=== PATIENT | female | born 1925 | race Caucasian/White ===

== ENCOUNTER → 2017-05-23 | Outpatient (CLI) | payer MEDICARE, OTHER ==
[2016-01-16 09:39] VITALS: BMI 27.6
[~2017-05-23] MED LIST: ACE3 PO; ACE500 PO; ALEN70TA42 PO; AML5 PO; AMLO-104 PO; AMLO-546 PO; AMLO-98 PO; ASPI-1441 PO; ASPI-715 PO; ATOR10TA65 PO; BILB80CA2 PO; C-PAP; CALC500T42 PO; CELE-1 PO; CEP500 PO; CEPH250C37 PO; CEPH500T7 PO; CETI-434 PO; CHOL400C10 PO; CIPR-214 PO; DAR100 PO; DOC100 PO; DOCU100C49 PO; ERG400 PO; EXE25PT PO; FAMO20TA28 PO; GAB300 PO; GABA-549 PO; GLIM4TAB49 PO; HCTZ25 PO; HYDR-385 PO; LETPT GT; LETR2.5T4 PO; LIDO20SO MM; LOR7.5/325 PO; LUTE10TA3 PO; MET500 PO; METF-1 PO; METF-410 PO; METF-415 PO; MOM PO; MULT-1 PO; NIT4 SL; NITR-57 PO; OMEP-137 PO; OMEP-153 PO; OMEP40CA45 PO; ONDA4TAB PO; OSC600 PO; PHEN200T32 PO; PRAV40TA77 PO; PROM12.556 PO; QUI20 PO; QUIN10TA24 PO; RECLAST; SIMV-44 PO; SUC1 PO; TRILI135PT PO; VIT-40 PO; ZOFRAN; ZOLE5INF IV
[2017-05-23 09:35] LABS: LDL CHOLESTEROL 68 mg/dl
== END ==
LOC: LAB 08:35
PROVIDERS: ATTEND Family Medicine
DX: I10 Essential (primary) hypertension (principal); E78.5 Hyperlipidemia, unspecified; E11.65 Type 2 diabetes mellitus with hyperglycemia
CPT/HCPCS: 36415; 82040; 82043; 82247; 82310; 82374; 82435; 82465; 82565; 82947; 83036; 83718; 84075; 84132; 84155; 84295; 84450; 84460; 84478; 84520